=== PATIENT | female | born 2000 | race Caucasian/White ===

== ENCOUNTER 2020-07-25 06:57 | Emergency (ER) | payer OTHER, SELFPAY ==
--- NOTE | ~2020-07-25 | CT_ITS ---
EXAMINATION: CT ABDOMEN AND PELVIS WITH CONTRAST CLINICAL INFORMATION: Right upper quadrant and left upper quadrant pain COMPARISON: None TECHNIQUE: Multidetector volumetric images were obtained from the superior aspect of the liver through the pubic symphysis following administration 85 mL of Omnipaque 350 intravenous contrast. Sagittal and coronal reformatted images were obtained on the technologist's workstation. Oral contrast: No This CT examination was performed using dose optimization techniques as appropriate, variously including the following: *Automated exposure control *Adjustment of mA and/or kV according to patient size (this includes techniques or standardized protocols for targeted exams where dose is matched to indication/reason for exam; i.e. extremities or head) *Use of iterative reconstruction technique Evaluation is somewhat limited due to motion artifact DLP: 814 mGy-cm FINDINGS: LUNG BASES: The visualized lung bases are unremarkable. LIVER, GALLBLADDER, AND BILIARY TREE: The liver is normal in size, shape, and attenuation. No focal hepatic lesion or biliary ductal dilatation is present. The gallbladder is unremarkable with no evidence of radiopaque gallstones, gallbladder wall thickening, or obvious pericholecystic inflammatory changes. PANCREAS: Unremarkable. SPLEEN: Unremarkable. ADRENAL GLANDS: Unremarkable. KIDNEYS AND URETERS: The kidneys are normal in size, shape, and attenuation. No hydronephrosis, hydroureter, or calculi seen. No perinephric stranding. BLADDER: Unremarkable. GASTROINTESTINAL TRACT: The small and large bowel are unremarkable. The appendix is unremarkable. ABDOMINAL WALL: No significant hernia is appreciated. LYMPH NODES: No pathologically enlarged lymph nodes. Mildly prominent scattered mesenteric nodes measuring up to 0.8 cm in short axis. VASCULAR: Normal caliber of the abdominal aorta. PELVIC VISCERA: The uterus and adnexa are unremarkable. Small amount of free fluid in the pelvis, likely physiologic. OSSEOUS STRUCTURES: No acute or suspicious osseous abnormality. A Schmorl's node is seen in the superior endplate at L4. CT/CT abdomen pelvis w con IMPRESSION: No acute intra-abdominal pathology. Evaluation of the upper abdominal viscera is somewhat limited due to motion artifact. No bowel obstruction. Normal appendix.
[2020-07-25 07:13] VITALS: BP 121/67; PULSE 67; RESP 20; TEMP 36.6; O2SAT 99; BMI 34.9
--- NOTE | 2020-07-25 07:27 | ED.ABDPAIN ---
HPI - Abdominal Pain General Chief Complaint: Abdominal Pain Stated Complaint: ABD PAIN Time Seen by Provider: 07/25/20 07:04 Source: patient Mode of arrival: ambulatory Limitations: no limitations History of Present Illness HPI narrative: Patient comes emergency room complaining of abdominal pain starting at 03:00. Patient states it feels very crampy, complaining of vomiting x5, no diarrhea. Patient states that she usually gets this kind of discomfort around the time that she is due for her menstrual period. Related Data Previous Rx's Medication Instructions Recorded hyoscyamine sulfate 0.25 mg PO QID PRN #10 tab 07/25/20 ondansetron HCl [Zofran] 4 mg PO Q8H PRN #10 tab 07/25/20 Allergies Allergy/AdvReac Type Severity Reaction Status Date / Time No Known Allergies Allergy Unverified 01/30/20 19:34 [No Known Allergies*] Review of Systems Review of Systems Constitutional : No Weight loss, No Fever, No Chills, No Night Sweats, No Fatigue, No Malaise ENT/Mouth : No Hearing loss, No Ear Pain, No Nasal Congestion, No Sinus Pain, No Hoarseness, No sore throat, No Rhinorrhea, No Swallowing Difficulty Eyes: No Eye Pain, No Swelling, No Redness, No Foreign Body, No Discharge, No Vision Changes Cardiovascular : No Chest Pain, No SOB, No Dyspnea on Exertion, No Orthopnea, No Edema, No Palpitations Respiratory : No Cough, No Sputum, No Wheezing, No Smoke Exposure, No Dyspnea Gastrointestinal : Complaining of nausea vomiting No Diarrhea, No Constipation, complaining of bilateral upper quadrant discomfort, cramping, burning, No Hematochezia, No Melena Genitourinary : no irregular bleeding, No Dysuria, No Urinary Frequency, No Hematuria, No Urinary Incontinence, No Urgency, No Flank Pain, No Urinary Flow Changes, No Hesitancy Musculoskeletal : No joint pain, No Myalgias, No Joint Swelling Skin : No Skin Lesions, No rash Neuro : No Weakness, No Numbness, No Paresthesias, No Loss of Consciousness, No Dizziness, No Headache Psych : No Anxiety/Panic, No Depression, No SI/HI/AH/VH, No Social Issues, Heme/Lymph: No Bruising, No Bleeding,No Lymphadenopathy Endocrine : No Polyuria, No Polydipsia, No Temperature Intolerance Physical Exam Vital Signs: Vital Signs: Last Vital Signs Temp 97.8 F 07/25/20 07:13 Pulse 88 07/25/20 11:12 Resp 17 07/25/20 11:12 BP 135/84 07/25/20 11:12 Pulse Ox 99 07/25/20 11:12 Body Mass Index 34.9 Appearance: Alert. Oriented X3. No acute distress. Looks comfortable, talking on her phone Eyes: Pupils equal, round and reactive to light. ENT: Pharynx normal. Neck: Normal inspection. Neck supple. No lymph nodes noted. No crepitus CVS: Normal heart rate and rhythm. Pulses normal. Normal S1 and S2 Respiratory: No respiratory distress. Breath sounds normal. No Wheezing. No rales Abdomen: Soft, no pain to deep palpation. No rigidity. No distention. good BS x4 Skin: Skin warm and dry. Normal skin color. Normal skin turgor. Extremities: No lower extremity edema. No lower extremity edema. No Lacerations. No Rash Neuro: Oriented X 3. No motor deficit. No sensory deficit. Moving all extermities. No slurred speech. Course Course Course Narrative: I discussed the labs and imaging with the patient, patient's white blood cell count likely secondary to viral GI infection. Patient has not vomited or had any diarrhea here in the emergency room, pain improved, but still has cramping. Physical exam prior to discharge , the abdomen is soft, nontender, nondistended. MDM - Abdominal Pain Lab Data Result diagrams: 07/25/20 08:47 07/25/20 08:47 Labs: Lab Results 07/25/20 07/25/20 07/25/20 Range/Units 08:47 08:47 11:06 WBC 14.4 H (4.8-10.8) X10*3/uL RBC 4.41 (4.20-5.50) X10*6/uL Hgb 14.0 (12.0-16.0) g/dl Hct 40.4 (37-47) % MCV 91.6 (80-98) fL MCH 31.7 (27.0-33.0) pg MCHC 34.7 (31.0-35.0) g/dl RDW 11.8 (11.0-16.0) % Plt Count 246 (160-400) X10*3/uL MPV 9.4 (9.4-12.3) fL Immature Gran % (Auto) 0.3 (0.0-0.4) % Neut % (Auto) 88.1 H (45-73) % Lymph % (Auto) 8.5 L (20-40) % Petroleum % (Auto) 2.8 (2-11) % Eos % (Auto) 0.1 (0-4) % Baso % (Auto) 0.2 (0-2) % Lymph # (Auto) 1.2 (1.2-4.9) X10*3/uL [place] # (Auto) 0.4 (0.1-1.2) X10*3/uL Eos # (Auto) 0.0 (0.0-0.4) X10*3/uL Baso # (Auto) 0.0 (0.0-0.2) X10*3/uL Abs Immat Gran (auto) 0.05 H (0.00-0.03) X10*3/uL Absolute Neuts (auto) 12.7 H (2.0-8.3) X10*3/uL Absolute Nucleated RBC 0.000 (0.0-0.012) X10*3/uL Nucleated RBC % (auto) 0.0 (0.0-0.2) /100WBC Sodium 141 (135-145) mmol/L Potassium 4.1 (3.3-5.1) mmol/L Chloride 106 (96-108) mmol/L Carbon Dioxide 25 (22-29) mmol/L Anion Gap 14 (12-20) BUN 11 (9-16) mg/dL Creatinine 0.81 (0.5-1.4) mg/dL Estim Creat Clear Calc 127.5 Estimated GFR > 60 Random Glucose 137 H (60-115) mg/dL Calcium 9.4 (8.4-10.2) mg/dL Total Bilirubin 0.2 (0.0-1.0) mg/dL Direct Bilirubin < 0.2 (0.0-0.5) mg/dL AST 13 (5-31) U/L ALT 14 (0-31) U/L Alkaline Phosphatase 86 (39-117) U/L Total Protein 7.3 (6.5-8.0) g/dL Albumin 4.4 (3.5-5.0) g/dL Lipase 13 (8-78) U/L Urine Color YELLOW Urine Appearance HAZY Urine pH 6.5 (5.0-8.0) Ur Specific [place] 1.025 (1.005-1.025) Urine Protein NEG (NEG-TRACE) MG/DL Urine Glucose (UA) NEG (NEG) MG/DL Urine Ketones NEG (NEG) MG/DL Urine Blood NEG (NEG) Urine Nitrite NEG (NEG) Ur Leukocyte Esterase NEG (NEG) Urine Test (NEGATIVE) 07/25/20 Range/Units 11:06 WBC (4.8-10.8) X10*3/uL RBC (4.20-5.50) X10*6/uL Hgb (12.0-16.0) g/dl Hct (37-47) % MCV (80-98) fL MCH (27.0-33.0) pg MCHC (31.0-35.0) g/dl RDW (11.0-16.0) % Plt Count (160-400) X10*3/uL MPV (9.4-12.3) fL Immature Gran % (Auto) (0.0-0.4) % Neut % (Auto) (45-73) % Lymph % (Auto) (20-40) % [place] % (Auto) (2-11) % Eos % (Auto) (0-4) % Baso % (Auto) (0-2) % Lymph # (Auto) (1.2-4.9) X10*3/uL [place] # (Auto) (0.1-1.2) X10*3/uL Eos # (Auto) (0.0-0.4) X10*3/uL Baso # (Auto) (0.0-0.2) X10*3/uL Abs Immat Gran (auto) (0.00-0.03) X10*3/uL Absolute Neuts (auto) (2.0-8.3) X10*3/uL Absolute Nucleated RBC (0.0-0.012) X10*3/uL Nucleated RBC % (auto) (0.0-0.2) /100WBC Sodium (135-145) mmol/L Potassium (3.3-5.1) mmol/L Chloride (96-108) mmol/L Carbon Dioxide (22-29) mmol/L Anion Gap (12-20) BUN (9-16) mg/dL Creatinine (0.5-1.4) mg/dL Estim Creat Clear Calc Estimated GFR Random Glucose (60-115) mg/dL Calcium (8.4-10.2) mg/dL Total Bilirubin (0.0-1.0) mg/dL Direct Bilirubin (0.0-0.5) mg/dL AST (5-31) U/L ALT (0-31) U/L Alkaline Phosphatase (39-117) U/L Total Protein (6.5-8.0) g/dL Albumin (3.5-5.0) g/dL Lipase (8-78) U/L Urine Color Urine Appearance Urine pH (5.0-8.0) Ur Specific [place] (1.005-1.025) Urine Protein (NEG-TRACE) MG/DL Urine Glucose (UA) (NEG) MG/DL Urine Ketones (NEG) MG/DL Urine Blood (NEG) Urine Nitrite (NEG) Ur Leukocyte Esterase (NEG) Urine Test NEGATIVE (NEGATIVE) Discharge Plan Discharge Clinical Impression: Abdominal pain Qualifiers: Abdominal location: generalized Qualified Code(s): R10.84 - Generalized abdominal pain Patient Disposition: Home, Self-Care Instructions: Abdominal Pain (ED) Additional Instructions: Please drink plenty of fluids. Please follow-up with your primary care physician tomorrow. If you have any worsening or new symptoms, please return to the emergency room or call 911 Prescriptions: New ondansetron HCl [Zofran] 4 mg tablet 4 mg PO Q8H PRN (Reason: nausea and vomiting) Qty: 10 RF: 0 hyoscyamine sulfate 0.125 mg tablet 0.25 mg PO QID PRN (Reason: dyspepsia) Qty: 10 RF: 0 PMFSH Social History Social History Smoked in Last 30 Days: No Use of substances other than those prescribed or required for medical reasons: No Advance Directives: No Advance Directives Information Provided: No
[2020-07-25] MEDS: Magnesium Hydrox/Alum Hydrox 30 ML ORAL.SUSP PO (08:41)
[2020-07-25] MEDS: Lidocaine HCl Viscous 2 % 15 ML SOLUTION MUCOUS MEM (08:41)
--- NOTE | 2020-07-25 08:57 | PC.NURSE ---
patient vomited lidocaine/maalox drink for abdominal pain. aware.
[2020-07-25 09:01] LABS: MANUAL DIFF FLAG NO
[2020-07-25 09:02] LABS: Basophils Percent Auto 0.2 % (0-2); Eosinophils Percent Auto 0.1 % (0-4); Hematocrit 40.4 % (37-47); Imm Gran Abs Auto 0.05 X10*3/uL (0.00-0.03); Imm Gran Pct Auto 0.3 % (0.0-0.4); Lymphocytes Absolute Auto 1.2 X10*3/uL (1.2-4.9); Lymphocytes Percent Auto 8.5 % (20-40); Mean Corpuscular HGB Conc 34.7 g/dl (31.0-35.0); Mean Corpuscular Hemoglobin 31.7 pg (27.0-33.0); Mean Corpuscular Volume 91.6 fL (80-98); Mean Platelet Volume 9.4 fL (9.4-12.3); Monocytes Absolute Auto 0.4 X10*3/uL (0.1-1.2); Monocytes Percent Auto 2.8 % (2-11); Neutrophils Absolute Auto 12.7 X10*3/uL (2.0-8.3); Neutrophils Percent Auto 88.1 % (45-73); Platelet Count 246 X10*3/uL (160-400); Red Blood Count 4.41 X10*6/uL (4.20-5.50); Red Cell Distribution Width 11.8 % (11.0-16.0); White Blood Count 14.4 X10*3/uL (4.8-10.8)
[2020-07-25] MEDS: ondansetron HCL 4 MG/2 ML VIAL IVPUSH (09:18)
[2020-07-25] MEDS: 0.9 % Sodium Chloride 1,000 ML 999 ML IVCONT (09:18)
[2020-07-25 09:19] VITALS: BP 102/57; PULSE 67; RESP 16; O2SAT 99
[2020-07-25 09:33] LABS: Alanine Aminotransferase 14 U/L (0-31); Albumin Level 4.4 g/dL (3.5-5.0); Alkaline Phosphatase 86 U/L (39-117); Anion Gap 14 (12-20); Aspartate Amino Transferase 13 U/L (5-31); Bilirubin Direct < 0.2 mg/dL (0.0-0.5); Bilirubin Total 0.2 mg/dL (0.0-1.0); Blood Urea Nitrogen 11 mg/dL (9-16); Calcium 9.4 mg/dL (8.4-10.2); Carbon Dioxide 25 mmol/L (22-29); Chloride 106 mmol/L (96-108); Creatinine Clr Calc Pharmacy 127.5; Estimated Glomerular Filt Rate > 60; Glucose Random 137 mg/dL (60-115); Lipase 13 U/L (8-78); Potassium 4.1 mmol/L (3.3-5.1); Sodium 141 mmol/L (135-145); Total Protein 7.3 g/dL (6.5-8.0)
[2020-07-25] MEDS: Morphine Sulfate 2 MG/ML CARTRIDGE IVPUSH (10:48)
[2020-07-25 10:50] VITALS: BP 125/79; PULSE 71; RESP 17; O2SAT 99
[2020-07-25 11:12] VITALS: BP 135/84; PULSE 88; RESP 17; O2SAT 99
[2020-07-25 11:16] LABS: Glucose Urine UA NEG (NEG); Leukocyte Esterase Urine NEG (NEG); Nitrite Urine NEG (NEG); PH 6.5 (5.0-8.0); Specific Gravity - Urine 1.025 (1.005-1.025); Urine Blood NEG (NEG); Urine Ketones NEG (NEG); Urine Protein NEG (NEG-TRACE)
[2020-07-25 11:17] LABS: Appearance Urine HAZY; Color Urine YELLOW
[2020-07-25 11:18] LABS: UPreg QC Valid YES
[2020-07-25 11:20] LABS: Urine Pregnancy NEGATIVE (NEGATIVE)
== END 2020-07-25 12:40 | disposition home or self-care (01) ==
PROVIDERS: Emergency Provider Emergency Medicine
DX: R10.84 Generalized abdominal pain (principal); R11.10 Vomiting, unspecified; Z79.899 Other long term (current) drug therapy
CPT/HCPCS: 36415; 74177; 80048; 80076; 81003; 81025; 83690; 85025; 96365; 96375; 99284; J2270; J2405; Q9967

== ENCOUNTER → 2022-09-13 10:06 | Outpatient (BNVA) | payer OTHER, SELFPAY | PROVIDERS: Visit Provider Physician Assistant Medical | DX: S61.412A Laceration without foreign body of left hand, initial encounter (principal); W26.0XXA Contact with knife, initial encounter; Z23 Encounter for immunization | CPT/HCPCS: 12001; 90715 ==

== ENCOUNTER → 2022-09-15 08:44 | Outpatient (BNVA) | payer OTHER, SELFPAY | PROVIDERS: Visit Provider Physician Assistant Medical | DX: S61.012A Laceration without foreign body of left thumb without damage to nail, initial encounter (principal); W26.0XXA Contact with knife, initial encounter | CPT/HCPCS: 99213 ==

== ENCOUNTER → 2022-09-20 10:56 | Outpatient (BNVA) | payer OTHER, SELFPAY | PROVIDERS: Visit Provider Physician Assistant Medical | DX: Z48.02 Encounter for removal of sutures (principal); S61.012A Laceration without foreign body of left thumb without damage to nail, initial encounter; W26.0XXA Contact with knife, initial encounter | CPT/HCPCS: 99213 ==

== ENCOUNTER → 2022-09-22 07:46 | Outpatient (BNVA) | payer OTHER, SELFPAY | PROVIDERS: Visit Provider Physician Assistant Medical | DX: Z48.02 Encounter for removal of sutures (principal); S61.012A Laceration without foreign body of left thumb without damage to nail, initial encounter; W31.9XXA Contact with unspecified machinery, initial encounter | CPT/HCPCS: 99213 ==

== ENCOUNTER → 2022-09-26 07:55 | Outpatient (BNVA) | payer OTHER, SELFPAY | PROVIDERS: Visit Provider Physician Assistant Medical | DX: S61.012A Laceration without foreign body of left thumb without damage to nail, initial encounter (principal); W26.0XXA Contact with knife, initial encounter | CPT/HCPCS: 99213 ==

== ENCOUNTER 2023-05-11 15:17 | Emergency (ER) | payer BC, SELFPAY ==
[2023-05-11 15:41] VITALS: BP 130/68; PULSE 71; O2SAT 99
[2023-05-11 16:27] VITALS: BP 119/74; PULSE 73; RESP 20; TEMP 36.3; O2SAT 97; BMI 38.5
--- NOTE | 2023-05-11 16:27 | ED.GENADULT ---
HPI - General Adult General Chief complaint: Abdominal Pain Stated complaint: Abd pain Related Data Previous Rx's Medication Instructions Recorded hyoscyamine sulfate 0.125 mg tablet 0.25 mg (2 x 0.125 mg) PO QID PRN 07/25/20 dyspepsia #10 tabs ondansetron HCl 4 mg tablet 4 mg PO Q8H PRN nausea and 07/25/20 (Zofran) vomiting #10 tabs Allergies Allergy/AdvReac Type Severity Reaction Status Date / Time No Known Allergies Allergy Verified 05/11/23 16:29 [No Known Allergies*] [facility] Social History Social History Advance Directives: No Physical Exam ED Vital Signs: BMI result Body Mass Index 38.5 Course Course Course Narrative: RME:?22 yo female hx of gall stones s/p cholesystectomy 1 yr ago here w/ diffuse pain s/p eating burger from [email or web address] x3 hours. +nausea, no vomiting. one episode of diarrhea today. +epigastrium TTP, no rebound/guarding. labs, ur preg, +/- imaging Full HPI, ROS and PE to be performed by the primary ED provider. Reevaluation(s) Reevaluation #1: I evaluated this patient in triage. She left without completing treatment. Medical Decision Making Lab Data 05/11/23 17:43 05/11/23 17:43 Labs: Lab Results 05/11/23 05/11/23 Range/Units 17:43 17:44 WBC 15.8 H (4.8-10.8) X10*3/uL RBC 4.64 (4.20-5.50) X10*6/uL Hgb 14.5 (12.0-16.0) g/dl Hct 42.5 (37.0-47.0) % MCV 91.6 (80.0-98.0) fL MCH 31.3 (27.0-33.0) pg MCHC 34.1 (31.0-35.0) g/dl RDW 11.7 (11.0-16.0) % Plt Count 273 (160-400) X10*3/uL MPV 9.0 L (9.4-12.3) fL Immature Gran % (Auto) 0.3 (0.0-0.4) % Neut % (Auto) 90.1 H (45-73) % Lymph % (Auto) 5.5 L (20-40) % [place] % (Auto) 3.7 (2-11) % Eos % (Auto) 0.1 (0-4) % Baso % (Auto) 0.3 (0-2) % Lymph # (Auto) 0.9 L (1.2-4.9) X10*3/uL [place] # (Auto) 0.6 (0.1-1.2) X10*3/uL Eos # (Auto) 0.0 (0.0-0.4) X10*3/uL Baso # (Auto) 0.1 (0.0-0.2) X10*3/uL Abs Immat Gran (auto) 0.05 H (0.00-0.03) X10*3/uL Absolute Neuts (auto) 14.2 H (2.0-8.3) x10*3/uL Absolute Nucleated RBC 0.000 (0.0-0.012) X10*3/uL Nucleated RBC % (auto) 0.0 (0.0-0.2) /100WBC Smear Tech's Comments VERIFIED Sodium 139 (135-145) mmol/L Potassium 3.9 (3.3-5.1) mmol/L Chloride 102 (96-108) mmol/L Carbon Dioxide 27 (22-29) mmol/L Anion Gap 14 (12-20) BUN 9 (9-16) mg/dL Creatinine 0.76 (0.5-1.4) mg/dL Estim Creat Clear Calc 139.7 Estimated GFR > 60 Random Glucose 99 (60-115) mg/dL Calcium 10.4 H D (8.4-10.2) mg/dL Magnesium 2.1 (1.6-2.6) mg/dL Total Bilirubin 0.8 (0.0-1.0) mg/dL Direct Bilirubin 0.4 (0.0-0.5) mg/dL AST 78 H (5-31) U/L ALT 47 H (0-31) U/L Alkaline Phosphatase 103 (39-117) U/L Total Protein 7.8 (6.5-8.0) g/dL Albumin 4.2 (3.5-5.0) g/dL Lipase 15 (8-78) U/L Urine Test NEGATIVE (NEGATIVE) Discharge Plan Discharge Clinical Impression: Abdominal pain Patient Disposition: Left Without Being Seen Interventions: LWBS Worksheet Last Done: 05/11/23 21:15 Discharge Date/Time: 05/11/23 21:16
[2023-05-11 17:49] LABS: Basophils Absolute Auto 0.1 X10*3/uL (0.0-0.2); Basophils Percent Auto 0.3 % (0-2); Eosinophils Percent Auto 0.1 % (0-4); Hematocrit 42.5 % (37.0-47.0); Hemoglobin 14.5 g/dl (12.0-16.0); Imm Gran Abs Auto 0.05 X10*3/uL (0.00-0.03); Imm Gran Pct Auto 0.3 % (0.0-0.4); Lymphocytes Absolute Auto 0.9 X10*3/uL (1.2-4.9); Lymphocytes Percent Auto 5.5 % (20-40); MANUAL DIFF FLAG SCAN; Mean Corpuscular HGB Conc 34.1 g/dl (31.0-35.0); Mean Corpuscular Hemoglobin 31.3 pg (27.0-33.0); Mean Corpuscular Volume 91.6 fL (80.0-98.0); Monocytes Absolute Auto 0.6 X10*3/uL (0.1-1.2); Monocytes Percent Auto 3.7 % (2-11); Neutrophils Absolute Auto 14.2 x10*3/uL (2.0-8.3); Neutrophils Percent Auto 90.1 % (45-73); Platelet Count 273 X10*3/uL (160-400); Red Blood Count 4.64 X10*6/uL (4.20-5.50); Red Cell Distribution Width 11.7 % (11.0-16.0); SCAN SMEAR FLAG 1; White Blood Count 15.8 X10*3/uL (4.8-10.8)
[2023-05-11 17:52] LABS: UPreg QC Valid YES; Urine Pregnancy NEGATIVE (NEGATIVE)
[2023-05-11 18:02] LABS: Alanine Aminotransferase 47 U/L (0-31); Albumin Level 4.2 g/dL (3.5-5.0); Alkaline Phosphatase 103 U/L (39-117); Anion Gap 14 (12-20); Aspartate Amino Transferase 78 U/L (5-31); Bilirubin Direct 0.4 mg/dL (0.0-0.5); Bilirubin Total 0.8 mg/dL (0.0-1.0); Blood Urea Nitrogen 9 mg/dL (9-16); Calcium 10.4 mg/dL (8.4-10.2); Carbon Dioxide 27 mmol/L (22-29); Chloride 102 mmol/L (96-108); Creatinine Clr Calc Pharmacy 139.7; Estimated Glomerular Filt Rate > 60; Glucose Random 99 mg/dL (60-115); Lipase 15 U/L (8-78); Magnesium 2.1 mg/dL (1.6-2.6); Potassium 3.9 mmol/L (3.3-5.1); Sodium 139 mmol/L (135-145); Total Protein 7.8 g/dL (6.5-8.0)
[2023-05-11 18:07] LABS: SLIDE REVIEW VERIFIED
== END 2023-05-11 21:16 | disposition left against medical advice (07) ==
PROVIDERS: Physician Assistant Medical; Emergency Provider Emergency Medicine
DX: R10.9 Unspecified abdominal pain (principal); Z79.899 Other long term (current) drug therapy
CPT/HCPCS: 36415; 80048; 80076; 81025; 83690; 83735; 85025; 99282; 99283